=== PATIENT | male | born 1975 | race Caucasian/White ===

== ENCOUNTER 2017-08-08 07:48 | Day surgery (SDC) | payer OTHER ==
[2017-07-31 11:07] VITALS: BMI 30.8
[~2017-08-08 07:48] MED LIST: DEXAMETHASONE SOD PHOSPHATE 10 MG/ML 1 ML VIAL IV ONE; HEPARIN SODIUM,PORCINE 5,000 UNIT/ML 1 ML VIAL SQ ONE; HYDROmorphone 0.5 MG/0.5 ML SYRINGE IVP PRN; LACTATED RINGERS 1,000 ML IV ONE; LIDOCAINE 1% 20 ML VIAL (10MG/ML) FOR IV START INTRADERMA PRN; ONDANSETRON 4 MG/2 ML VIAL IVP ONE; SCOPOLAMINE 1.5MG/72HR PATCH TRANSDERM ONE; ceFAZolin IN SWFI 2 GM/20 ML SYRINGE IVP ONE
--- NOTE | 2017-08-08 08:27 | P.GSHP ---
History of Present Illness H&P Date: 08/08/17 Chief Complaint: Left internal hernia Patient here today for repair left inguinal hernia. The patient has complaints of pain over the last 2-3 years. He also feels a bulge at the umbilicus. No nausea or vomiting. No change in bowel habits. No prior surgical repair. Past Medical History Past Medical History: No Reported History History of Any Multi-Drug Resistant Organisms: None Reported Past Surgical History: Appendectomy, Tonsillectomy Past Anesthesia/Blood Transfusion Reactions: No Reported Reaction Smoking Status: Current every day smoker - Past Family History Mother Family Medical History: No Reported History Medications and Allergies Home Medications Medication Instructions Recorded Confirmed Type No Known Home Medications [No 07/31/17 08/08/17 History Known Home Medications] Allergies Allergy/AdvReac Type Severity Reaction Status Date / Time No Known Allergies Allergy Verified 08/08/17 07:55 Surgical - Exam Physical exam: General: Well-developed, well-nourished HEENT: Normocephalic, sclerae nonicteric Abdomen: Nontender, nondistended, small incarcerated umbilical hernia, reducible moderate sized left inguinal hernia, no palpable right inguinal hernia , both testes normal Extremities: No edema Neuro: Alert and oriented Assessment and Plan (1) Inguinal hernia Narrative/Plan: Will proceed with left inguinal hernia repair with mesh laparoscopically with da Tiffanie assistance. Possible bilateral repair. The patient's umbilical hernia repair carefully repaired in an open fashion with possible mesh. Risks of bleeding, infection, recurrence, bladder and bowel injury, numbness, nerve injury, conversion to an open procedure were discussed with the patient. The patient understands and wishes to proceed. Current Visit: Yes Status: Acute Code(s): K40.90 - UNIL INGUINAL HERNIA, W/ O OBST OR GANGR, NOT SPCF RECUR SNOMED Code(s): 203771915
[2017-08-08] MEDS ORDERED: PROPOFOL 10 MG/ML 20 ML VIAL IV ONE (08:39)
[2017-08-08] MEDS ORDERED: ROCURONIUM BROMIDE 10 MG/ML 10 ML VIAL IV ONE (08:39)
[2017-08-08] MEDS ORDERED: NEOSTIGMINE 1 MG/ML 10 ML VIAL ONE (08:39)
[2017-08-08] MEDS ORDERED: fentaNYL (PF) 50 MCG/ML 2 ML AMP ONE (08:39)
[2017-08-08] MEDS ORDERED: LIDOCAINE 1% INJ 10MG/ML (20 ML MDV) ONE (08:39)
[2017-08-08] MEDS ORDERED: HYDROmorphone (PF) 1 MG/ML ONE (08:39)
[2017-08-08] MEDS ORDERED: GLYCOPYRROLATE 0.2 MG/ML 2 ML VIAL ONE (08:39)
[2017-08-08] MEDS ORDERED: SUCCINYLCHOLINE CHLORIDE 100 MG/5 ML SYR IV ONE (08:39)
[2017-08-08] MEDS ORDERED: MIDAZOLAM 2 MG/2 ML VIAL ONE (08:39)
[2017-08-08] MEDS ORDERED: BUPIVACAIN-EPI 0.25%-1:200,000 30 ML VIAL SQ ONE (09:01)
[2017-08-08] MEDS ORDERED: ceFAZolin 1,000 MG/50 ML BAG (PMX) IVPB ONE (09:01)
[2017-08-08] MEDS ORDERED: HYDROcodone/APAP 5-325MG 1 EACH TAB PO PRN (10:30)
[2017-08-08] MEDS ORDERED: HYDROmorphone 0.5 MG/0.5 ML SYRINGE IVP PRN (10:30)
[2017-08-08] MEDS ORDERED: NALOXONE 0.4 MG/ML 1 ML VIAL IV PRN (10:30)
--- NOTE | 2017-08-08 10:35 | P.OP ---
Date of Procedure: 08/08/17 Procedure(s) Performed: PREOPERATIVE DIAGNOSIS: left inguinal hernia POSTOPERATIVE DIAGNOSIS: Same PROCEDURE: Laparoscopic repair left inguinal hernia with the da Tiffanie robot assistance with mesh and open repair incarcerated umbilical hernia SURGEON: Mikki EBL: Minimal ANESTHESIA: General COMPLICATIONS: None OPERATIVE PROCEDURE: Patient was placed in the operating table in the supine position. The patient was placed under general anesthesia. The patient was then placed in lithotomy. The abdomen was prepped and draped in usual sterile fashion. A small curvilinear incision was made along the right side of the umbilicus. the hernia sac and preperitoneal fat was excised using electrocautery. The defect in the fascia measured approximately 8 mm. Through this opening the Veress needle was inserted. The saline drop test was normal. Insufflation took place to 15 mmHg. A 5 mm trocar was then inserted. 2 additional 8 mm trochars were placed in the right upper quadrant and left upper quadrant under visualization. the initial 5 mm trocar was then switched to a 12 mm trocar. The robotic arms were then brought in and docked into place. The fenestrated bipolar was used in the left arm and the laparoscopic kelvin was utilized in the right arm. A 30 12 mm scope was used in the up position. The peritoneal cavity was inspected. there was a depression in the direct space on the left that appeared to be the site of hernia. The peritoneum was incised in a horizontal fashion cephalad to the internal inguinal ring. Following that careful dissection of the preperitoneal space took place. This took place using both electrocautery, sharp dissection but primarily blunt dissection. Visualization of the pubic tubercle and Mike's ligament took place medially. Full dissection took place laterally as well. The patient's hernia was noted to be a direct hernia just medial to the inferior epigastric vasculature. The hernia sac was fully dissected. Once we had adequate space the 15 x 10 progrip mesh was advanced into the preperitoneal space and flattened out appropriately to cover all potential hernia sites. No sutures were used. The peritoneal defect was then closed using a locking 2-0 VLok suture. a small area of bleeding along the peritoneal closure was noted and controlled using a [id number] 3-0 Vicryl stitch. The pneumoperitoneum was then evacuated. The fascia at the 12 mm site was closed using interrupted [id number] 0 Ethibond sutures. No mesh was utilized at the umbilicus. The skin of all 3 sites was closed using a 4-0 Monocryl stitch. Steri-Strips and sterile dressings were applied. DISPOSITION: Stable to recovery room
[2017-08-08] MEDS ORDERED: KETOROLAC 30 MG/ML 1 ML VIAL IVP ONE (10:38)
[2017-08-08] MEDS ORDERED: diphenhydrAMINE 50 MG/ML 1 ML VIAL IVP ONE (10:39)
[2017-08-08 10:44] VITALS: TEMP 97.4
[2017-08-08] MEDS ORDERED: HYDROcodone/APAP 5-325MG 1 EACH TAB PO ONE (12:00)
[2017-08-08] MEDS ORDERED: LACTATED RINGERS 1,000 ML IV ONE ×2 (12:35)
[2017-08-08 13:38] VITALS: BP 116/77; PULSE 69; RESP 18
== END 2017-08-08 14:00 | disposition home or self-care (01) ==
LOC: OR 07:48
PROVIDERS: ATTEND Surgery
DX: K40.90 Unilateral inguinal hernia, without obstruction or gangrene, not specified as recurrent (principal); K42.0 Umbilical hernia with obstruction, without gangrene; F17.210 Nicotine dependence, cigarettes, uncomplicated
CPT/HCPCS: 49650; 49653; S2900; 88302

== ENCOUNTER 2021-09-26 08:51 | Day surgery (SDC) | payer OTHER ==
[2021-09-22 11:38] VITALS: BMI 34.4
[~2021-09-26 08:51] MED LIST changes: +ACETAMINOPHEN TAB 500 MG TAB PO PRN; -DEXAMETHASONE SOD PHOSPHATE 10 MG/ML 1 ML VIAL IV ONE; -HEPARIN SODIUM,PORCINE 5,000 UNIT/ML 1 ML VIAL SQ ONE; +HEPARIN SODIUM,PORCINE/PF 5,000 UNIT/0.5 ML SYRINGE SQ PRN; -HYDROmorphone 0.5 MG/0.5 ML SYRINGE IVP PRN; -LACTATED RINGERS 1,000 ML IV ONE; -LIDOCAINE 1% 20 ML VIAL (10MG/ML) FOR IV START INTRADERMA PRN; -ONDANSETRON 4 MG/2 ML VIAL IVP ONE; -SCOPOLAMINE 1.5MG/72HR PATCH TRANSDERM ONE; -ceFAZolin IN SWFI 2 GM/20 ML SYRINGE IVP ONE
[2021-09-26] MEDS ORDERED: DEXAMETHASONE SOD PHOSPHATE 4 MG/ML 1 ML VIAL IV ONE (09:13)
[2021-09-26] MEDS ORDERED: LACTATED RINGERS 1,000 ML IV SCH (09:13)
[2021-09-26] MEDS ORDERED: ONDANSETRON 4 MG/2 ML VIAL IVP ONE (09:13)
[2021-09-26] MEDS ORDERED: SUCCINYLCHOLINE CHLORIDE 100 MG/5 ML SYR IV ONE (10:00)
[2021-09-26] MEDS ORDERED: GLYCOPYRROLATE 0.2 MG/ML 2 ML VIAL ONE (10:00)
[2021-09-26] MEDS ORDERED: LIDOCAINE 1% INJ 10MG/ML (20 ML MDV) ONE (10:00)
[2021-09-26] MEDS ORDERED: MIDAZOLAM 2 MG/2 ML VIAL ONE (10:00)
[2021-09-26] MEDS ORDERED: PROPOFOL 10 MG/ML 20 ML VIAL IV ONE (10:00)
[2021-09-26] MEDS ORDERED: HYDROmorphone (PF) 1 MG/ML ONE (10:00)
[2021-09-26] MEDS ORDERED: fentaNYL (PF) 50 MCG/ML 2 ML AMP ONE (10:00)
[2021-09-26] MEDS ORDERED: NEOSTIGMINE 1 MG/ML 10 ML VIAL ONE (10:00)
[2021-09-26] MEDS ORDERED: ROCURONIUM 10 MG/ML (5 ML VIAL) IV ONE (10:00)
--- NOTE | 2021-09-26 10:07 | P.GSHP ---
History of Present Illness H&P Date: 09/26/21 Chief Complaint: Recurrent left inguinal hernia 45-year-old male known to our service. Patient with history of previous laparoscopic repair left direct inguinal hernia. 1-1.5 years ago patient felt a popping sensation in the left groin. Later started to notice a bulge there. Seen in the office one month ago. Patient noted to have a recurrent hernia. Mild soreness at times. No recurrence of his umbilical hernia that was previously repaired. Patient does smoke tobacco. Past Medical History Past Medical History: Asthma Additional Past Medical History / Comment(s): LEFT INGUINAL HERNIA History of Any Multi-Drug Resistant Organisms: None Reported Past Surgical History: Appendectomy, Hernia Repair, Tonsillectomy Additional Past Surgical History / Comment(s): LEFT INGUINAL HERNIA (2018) Past Anesthesia/Blood Transfusion Reactions: No Reported Reaction Past Psychological History: No Psychological Hx Reported Smoking Status: Current every day smoker Past Alcohol Use History: Daily Additional Past Alcohol Use History / Comment(s): SMOKES 1 1/2 -2 PACKS /WEEK., STARTED SMOKING AGE 19. DRINKS 1-2 BEERS/DAILY Past Drug Use History: None Reported - Past Family History Mother Family Medical History: No Reported History Medications and Allergies Home Medications Medication Instructions Recorded Confirmed Type Ascorbic Acid [Vitamin C] 1,000 mg PO DAILY 09/22/21 09/26/21 History Aspirin 325 mg PO ONCE PRN 09/22/21 09/26/21 History Cholecalciferol [Vitamin D3 (10 10 mcg PO DAILY 09/22/21 09/26/21 History Mcg = 400 Iu)] Ibuprofen 200 mg PO ONCE PRN 09/22/21 09/26/21 History Inhaler -Unknown Name 1 dose INHALATION DIRECTED PRN 09/22/21 09/26/21 History Multivit-Min/Folic/Vit K/Lycop 1 each PO DAILY 09/22/21 09/26/21 History [Men's Multivitamin Tablet] Zinc 50 mg PO DAILY 09/22/21 09/26/21 History Allergies Allergy/AdvReac Type Severity Reaction Status Date / Time No Known Allergies Allergy Verified 09/26/21 09:22 Surgical - Exam Vital Signs Temp Pulse Resp BP Pulse Ox 97.1 F L 72 16 130/88 95 09/26/21 09:25 09/26/21 09:25 09/26/21 09:25 09/26/21 09:25 09/26/21 09:25 Physical exam: General: Well-developed, well-nourished HEENT: Normocephalic, sclerae nonicteric Abdomen: Nontender, nondistended, reducible left inguinal hernia Extremities: No edema Neuro: Alert and oriented Assessment and Plan (1) Reducible left inguinal hernia Narrative/Plan: 45-year-old male with reducible left inguinal hernia. We'll proceed with open repair with mesh at this time. Risks of bleeding, infection, recurrence, bladder and bowel injury, numbness, nerve injury were discussed with the patient. The patient understands and wishes to proceed. Current Visit: Yes Status: Acute Code(s): K40.90 - UNIL INGUINAL HERNIA, W/O OBST OR GANGR, NOT SPCF RECUR OMED Code(s): 115947534
[2021-09-26] MEDS ORDERED: BUPIVACAIN-EPI 0.25%-1:200,000 30 ML VIAL SQ ONE ×2 (10:23)
[2021-09-26] MEDS ORDERED: LACTATED RINGERS 1,000 ML IV ONE (11:19)
[2021-09-26 11:37] VITALS: TEMP 97.7
[2021-09-26 11:48] VITALS: RESP 16
--- NOTE | 2021-09-26 11:48 | P.OP ---
Date of Procedure: 09/26/21 Procedure(s) Performed: PREOPERATIVE DIAGNOSIS: Recurrent left inguinal hernia POSTOPERATIVE DIAGNOSIS: Recurrent direct left inguinal hernia PROCEDURE: Open repair recurrent left inguinal hernia with mesh SURGEON: Dr. Kaye ANESTHESIA: General OPERATIVE PROCEDURE DETAILS: The patient is brought and placed on the operating table in the supine position. The patient was placed under general anesthesia at that time. An oblique incision was made in the left groin using a scalpel. The subcutaneous tissues were dissected using electro cautery. A small subcutaneous vein was ligated using 3-0 silk ties. The external oblique was incised with a scalpel. This was lengthened using a Metzenbaum scissors. The spermatic cord structures were encircled with a Reyno drain and dissected carefully. The patient had a moderate sized recurrent direct hernia defect. The patient also had a moderate size lipoma of the cord that was dissected back to the internal inguinal ring where it was ligated using a 2-0 Nurolon stick tie suture. A portion of the attenuated transversalis fascia was excised. The pr eperitoneal space was carefully dissected. I was not able to palpate our preperitoneal mesh that was previously placed laparoscopically. A extended large Prolene hernia system was chosen. The inner circular portion of the mesh was placed within the pre-peritoneal space and flattened out appropriately. The outer oval portion of mesh was slit and wrapped around the spermatic cord and sutured back to itself. The mesh was then sutured to the pubic tubercle, the folding edge of the inguinal ligament, and the conjoined tendon. The external oblique was then reapproximated using a running 2-0 Vicryl suture. The subcutaneous tissues were reapproximated using interrupted 3-0 Vicryl sutures and the skin using a running 4-0 Monocryl stitch. Steri-Strips and sterile dressings then applied. At the end of the procedure the sponge needle and counts were all correct. TYPE OF MESH USED: Bard Prolene hernia system extended large LOCATION OF MESH: [place] FIXATION: 2-0 Nurolon sutures PREOPERATIVE DISCUSSION ON SMOKING CESSASTION: Yes PREOPERATIVE DISCUSSION ON MORBID OBESITY: Yes PREOPERATIVE DISCUSSION ON APPROPRIATE USE OF NARCOTIC USE: Yes DISPOSITION: Stable to recovery room
[2021-09-26] MEDS: HYDROmorphone 0.5 MG/0.5 ML SYRINGE IVP PRN ×2 (11:50→12:05)
[2021-09-26] MEDS ORDERED: ACETAMINOPHEN TAB 325 MG TAB PO SCH (12:00)
[2021-09-26 13:27] VITALS: BP 132/85; PULSE 68
[2021-09-26] MEDS ORDERED: IBUPROFEN 600 MG TAB PO SCH (15:00)
== END 2021-09-26 13:41 | disposition home or self-care (01) ==
LOC: OR 08:51
PROVIDERS: ATTEND Surgery
DX: K40.91 Unilateral inguinal hernia, without obstruction or gangrene, recurrent (principal); J45.20 Mild intermittent asthma, uncomplicated; Z90.49 Acquired absence of other specified parts of digestive tract; Z98.890 Other specified postprocedural states; F17.210 Nicotine dependence, cigarettes, uncomplicated; Z79.891 Long term (current) use of opiate analgesic
CPT/HCPCS: 88304; 49520; C1781; J2250; J1100; J2710; J0690; J2405; J2001; J3010; J1170 ×2; J0330; J2704; J1644